=== PATIENT | female | born 1990 | race Caucasian/White ===

== ENCOUNTER 2018-09-02 12:18 | Outpatient (CLI) | payer BC ==
--- NOTE | 2018-09-02 14:51 | RAD ---
LUMBAR SPINE FIVE VIEWS: HISTORY: Lumbar pain. FINDINGS: Lumbar vertebrae maintain normal height. Disk narrowing at L5-S1. Mild facet hypertrophy at L4-L5 a nd at L5-S1. No spondylolisthesis or spondylosis. IMPRESSION: Mild loss of disk space at L5-S1 and mild degenerative changes at this level. POS: YI
== END 2018-09-02 12:19 | disposition home or self-care (01) ==
LOC: BICRAD 12:18
PROVIDERS: ATTEND Family Medicine
DX: M54.5 Low back pain (principal); G89.29 Other chronic pain; M47.817 Spondylosis without myelopathy or radiculopathy, lumbosacral region
CPT/HCPCS: 72110

== ENCOUNTER 2019-02-09 05:54 | Inpatient (IN) | payer BC ==
[2019-02-08 10:49] VITALS: BMI 22.1
[2019-02-09] MEDS ORDERED: Midazolam HCl 2 mg/2 ml Vial ONE (06:22)
[2019-02-09] MEDS ORDERED: Fentanyl 250 MCG/5 ML VIAL ONE (06:22)
[2019-02-09] MEDS ORDERED: Sodium Chloride 0.9% 10 ML ONE (06:25)
[2019-02-09 07:04] LABS: Hemoglobin 13.6 g/dL (12.0-16.0); Mean Corpuscular HGB CONC 33.9 g/dL (32.0-36.0); Mean Corpuscular Hemoglobin 32.1 pg (27.0-31.0); Mean Corpuscular Volume 94.8 fL (78.0-98.0); Mean Platelet Volume 6.8 fL (7.4-10.4); Platelet Count 241 thou/uL (130-400); Red Blood Cell (RBC) Count 4.24 mill/uL (4.20-5.40); White Blood Cell (WBC) Count 4.8 thou/uL (4.8-10.8)
[2019-02-09 07:27] LABS: Anion Gap 10 mmol/L (10-20); BUN (Urea Nitrogen) 14 mg/dL (7.0-18.7); Calc. Creatinine Clearance 91 mL/min (70-130); Calcium 9.3 mg/dL (7.8-10.44); Carbon Dioxide 25 mmol/L (22-29); Chloride 105 mmol/L (98-107); Estimated GFR-MDRD 89; Glucose 85 mg/dL (70-105); Potassium 4.2 mmol/L (3.5-5.1); Sodium 136 mmol/L (136-145)
[2019-02-09] MEDS ORDERED: Fentanyl 100 MCG/2 ML VIAL ONE (09:23)
[2019-02-09] MEDS ORDERED: Promethazine HCl 25 MG/ML VIAL ONE (09:48)
--- NOTE | 2019-02-09 10:52 | OP ---
DATE OF PROCEDURE: 02/09/2019 CLAIMS ADJUSTOR: Macarena Bhakta PA-C PROCEDURES PERFORMED: Right L5-S1 laminectomy, facetectomy, foraminotomy, diskectomy, interbody arthrodesis, intervertebral biomechanical device, local morselized autograft, demineralized bone matrix, posterolateral arthrodesis, and pedicle screw instrumentation, L5-S1. DESCRIPTION OF PROCEDURE: The patient was brought to the operating room and intubated. She was rolled in a prone position on gel-filled chest rolls. An incision was made exposing L5 and S1 bilaterally and the level was confirmed by x-ray. We performed a right L5-S1 laminectomy, facetectomy, and foraminotomy, identified right L5 and right S1, and completely decompressed these nerve roots. The disk itself was incised and debrided and completely removed. The bony endplates were decorticated for the purpose of arthrodesis and appropriate-sized intervertebral biomechanical PEEK device was brought in the field. It was filled with demineralized bone matrix and local morselized autograft, and tapped in place securely at L5-S1. Next, pedicle screws were placed at right L5 and right S1 using lateral fluoroscopic guidance and the position was confirmed by x-ray. The rob was secured between the screws, connected by nuts, which were final tightened. The wound was extensively irrigated, MAC hemostasis was secured. A combination of demineralized bone matrix and local morselized autograft were laid over the lamina and posterolateral surfaces for the purpose of arthrodesis. Vancomycin powder was applied and the wound was then closed in anatomic layers. Job ID: [id number]
[2019-02-09] MEDS ORDERED: HYDROcodone/Acetaminophen 10/325 mg Tablet ONE (11:12)
[2019-02-09] MEDS ORDERED: PROPOFOL 200 MG/20 ML VIAL ONE (11:32)
[2019-02-09] MEDS ORDERED: Glycopyrrolate 0.2 MG/ML 5 ML SYRINGE ONE (11:32)
[2019-02-09] MEDS ORDERED: Rocuronium Bromide 10 MG/ML (10ML VIAL) ONE (11:32)
[2019-02-09] MEDS ORDERED: Dexamethasone 20 MG/5 ML VIAL ONE (11:32)
[2019-02-09] MEDS ORDERED: Lidocaine 1% PF 5 ML VIAL ONE (11:32)
[2019-02-09] MEDS ORDERED: Ketorolac Tromethamine 30 MG/ML VIAL ONE (11:32)
[2019-02-09] MEDS ORDERED: Ondansetron PF 4 MG/2 ML Vial ONE (11:32)
== END 2019-02-09 11:45 | disposition home or self-care (01) | DRG 460 ==
LOC: SURG A 05:54 → EDSTATUS 08:54
PROVIDERS: ADMIT Neurological Surgery; ATTEND Neurological Surgery
PROC: 0SG30AJ Fusion of Lumbosacral Joint with Interbody Fusion Device, Posterior Approach, Anterior Column, Open Approach (ICD-10-PCS; principal; 2019-02-09)
PROC: 0ST40ZZ Resection of Lumbosacral Disc, Open Approach (ICD-10-PCS; 2019-02-09)
DX: M47.817 Spondylosis without myelopathy or radiculopathy, lumbosacral region (principal); H91.91 Unspecified hearing loss, right ear; Z91.048 Other nonmedicinal substance allergy status
CPT/HCPCS: 36415; 76000; 80048; 85027; J0690; J1100; J1885; J2001; J2250; J2405; J2550; J2704; J3010; J3370; J3490

== ENCOUNTER 2019-02-24 10:54 | Outpatient (CLI) | payer BC ==
--- NOTE | 2019-02-24 11:01 | RAD ---
XR Lumbar Spine 2 Or 3 View HISTORY: Follow-up surgery COMPARISON: None. FINDINGS: Right unilateral pedicle screws have been placed at L5-S1. Markers of disc implants are wit hin the confines of the L5-S1 disc level. IMPRESSION: Postop changes of L5-S1.
== END 2019-02-24 10:55 | disposition home or self-care (01) ==
LOC: TBSIIMAG 10:54
PROVIDERS: ATTEND Neurological Surgery
DX: M54.16 Radiculopathy, lumbar region (principal); Z96.7 Presence of other bone and tendon implants
CPT/HCPCS: 72100

== ENCOUNTER 2019-05-10 14:03 | Outpatient (CLI) | payer BC ==
--- NOTE | 2019-05-10 14:33 | RAD ---
Exam: 2 views lumbar spine HISTORY: Follow-up lumbar fusion. COMPARISON: 02/24/2019 FINDINGS: 5 lumbar type vertebra. Stable unilateral right-sided transpedicular screw at L5 and S1. Th ere does appear to be perihardware lucency involving the L5 screw. Disc prosthesis at L5-S1. No spondylolisthesis or spondylolysis. IMPRESSION: 1. Stable lumbar fusion. 2. Perihardware lucency involving the right transpedicular screw at L5.
== END 2019-05-10 14:04 | disposition home or self-care (01) ==
LOC: TBSIIMAG 14:03
PROVIDERS: ATTEND Neurological Surgery
DX: M54.5 Low back pain (principal); Z98.1 Arthrodesis status
CPT/HCPCS: 72100

== ENCOUNTER 2021-03-25 12:30 | Outpatient (CLI) | payer BC | END 2021-03-25 12:31 | disposition home or self-care (01) | LOC: NM 12:30 | PROVIDERS: ATTEND Internal Medicine Gastroenterology | DX: R10.13 Epigastric pain (principal); R10.11 Right upper quadrant pain; R63.0 Anorexia | CPT/HCPCS: 78227; A9537 ==